=== PATIENT | female | born 1955 | race Caucasian/White ===

== ENCOUNTER 2021-12-15 06:51 | Day surgery (SDC) | payer OTHER ==
[2021-12-12 09:02] LABS: Protime INR 1.36
--- NOTE | 2021-12-12 09:29 | RAD REPORT ---
EXAM DESCRIPTION: RAD - Chest Pa And Lat (2 Views) - 12/12/2021 8:57 am CLINICAL HISTORY: pre op for surgery, pending trigger finger release COMPARISON: None TECHNIQUE: Frontal and lateral views of the chest were obtained. FINDINGS: The lungs are clear of failure, infiltrate or mass. Interstitial markings are mildly promi nent believed to be baseline. Heart size is normal and central vasculature is within normal limits. No pleural effusion or pneumothorax seen. No acute bony finding noted. No aortic abnormality. IMPRESSION: No acute cardiopulmonary process.
--- NOTE | 2021-12-14 06:02 | EKG ---
Test Date: 2021-12-12 Test Time: 08:36:07 Domestic Helper: AUDRA MEASUREMENT RESULTS: Intervals: Rate: 62 MS: 152 QRSD: 70 QT: 378 QTc: 383 [place]: P: -5 MS: 152 QRS: -6 T: 44 INTERPRETIVE STATEMENTS: Normal sinus rhythm with sinus arrhythmia Normal ECG No previous ECG available for comparison Electronically Signed On 12-14-21 06:00:06 CDT by Austen Gonzales
[2021-12-15] MEDS ORDERED: Ringers Lactate 1,000 ML IV ONE (07:11)
[2021-12-15] MEDS ORDERED: propofoL 200 MG/20 ML VIAL IV ONE (07:43)
[2021-12-15] MEDS ORDERED: FENTANYL CITR 100 MCG/2 ML ONE (07:43)
[2021-12-15] MEDS ORDERED: MIDAZOLAM HCL 2 MG/2 ML INJ ONE (07:43)
[2021-12-15] MEDS ORDERED: dexAMETHasone 10 MG/ML VIAL ONE (07:44)
[2021-12-15] MEDS ORDERED: ONDANSETRON 4 MG/2 ML VIAL ONE (07:44)
[2021-12-15] MEDS ORDERED: KETOROLAC 30 MG/ML INJ ONE (07:44)
[2021-12-15] MEDS ORDERED: LIDOCAINE 2% MPF 5 ML VIAL ONE (07:44)
[2021-12-15] MEDS ORDERED: BUPIVACAINE 0.25% PF 10 ML VIAL ONE (07:49)
--- NOTE | 2021-12-15 09:05 | P.BOP ---
Preoperative diagnosis: right middle finger trigger digit Postoperative diagnosis: same Primary procedure: right middle finger A1 sneha release Field Service Analyst: NONE,NONE Estimated blood loss: 2 cc Specimen: none Findings: see dictation Anesthesia: General Complications: None Implants: none Fluids & blood products: per anesthesia record; TT: 12 mins @ 250 mmHg Transferred to: Recovery Room Condition: Good
[2021-12-15 09:12] VITALS: O2SAT 100
[2021-12-15 10:09] VITALS: BP 98/31; TEMP 97.2
--- NOTE | 2021-12-21 21:50 | OP ---
Date of Procedure: 12/15/2021 Surgeon: Jacob Sanchez MD Preoperative Diagnosis: Right middle finger trigger digit. Postoperative Diagnosis: Right middle finger trigger digit. Procedure Performed: Right middle finger A1 sneha release. Anesthesia: General. Fluids: Per Anesthesia record. Estimated Blood Loss: 2 cc. Complications: None. Tourniquet Time: 12 minutes at 250 mmHg. Indication For Procedure: Jaqueline is a 66-year-old female who presented to my clinic with signs and symptoms consist with the right middle finger trigger digit. The patient failed conservative treatme nt measures including corticosteroid injection. I discussed with the patient at length risks and sherrie efits associated with operative and nonoperative treatment measures. She expressed understanding and elected to proceed with operative treatment. Description Of Procedure: After informed consent was obtained, the patient was identified in the pre operative holding area. The right middle finger was marked. The patient was then brought back to e operating room, transferred to the operating table in supine fashion, and placed under general LMA anesthesia. The right upper extremity was then prepped and draped in usual sterile fashion. A time- out was initiated. Correct patient and procedure confirmed and identified. The patient did receive her preoperative prophylactic antibiotics. The right extremity was then exsanguinated using an Esmar ch and the tourniquet was inflated to 250 mmHg. Approximately, a 1 cm longitudinal incision was made centered over the A1 sneha of the middle finger of the right hand. Dissection was then taken down and the flexor tendon sheath was identified and the tendon sheath was then released in line with the incision for release of the A1 sneha. The tendon was then brought out through the incision using a Ragnell and there was full escape excursion of the tendon without triggering noted. The wound was th en irrigated thoroughly with normal saline. Skin was approximated using a 5-0 Prolene. Sterile dres sings were applied. Tourniquet was let down. The patient was awakened and transferred to PACU in st able condition. Postoperative Plan: The patient will be nonweightbearing of her right upper extremity. She will beg in working on range of motion exercises. She will follow up in clinic in 1-2 weeks for wound check a nd suture removal. CV/MODL Voice ID: [id number] Report ID: [id number]
== END 2021-12-15 10:05 | disposition home or self-care (01) ==
LOC: OR 06:51
PROVIDERS: ATTEND Orthopaedic Surgery Sports Medicine
PROC: 01N50ZZ Release Median Nerve, Open Approach (ICD-10-PCS; principal; 2021-12-15 08:00)
DX: M65.331 Trigger finger, right middle finger (principal); E11.9 Type 2 diabetes mellitus without complications
CPT/HCPCS: 36415; 71046; 85610; 85730; 93005; J1100; J2001; J2250; J2405; J2704; J3010; J7120